=== PATIENT | male | born 1985 | race Caucasian/White ===

== ENCOUNTER → 2017-04-05 | Outpatient (CLI) | payer OTHER ==
[2017-04-05 19:11] LABS: ALBUMIN 4.4 GM/DL (3.2-5.2); ALBUMIN/GLOBULIN RATIO 1.42 (1.00-1.93); ALKALINE PHOSPHATASE 69 U/L (45-117); ALT/SGPT 38 U/L (12-78); ANION GAP 7 MEQ/L (8-16); AST/SGOT 12 U/L (15-37); BILIRUBIN,DIRECT 0.2 MG/DL (0.0-0.2); BILIRUBIN,TOTAL 0.7 MG/DL (0.2-1.0); BLOOD UREA NITROGEN 10 MG/DL (7-18); CALCIUM LEVEL 9.4 MG/DL (8.5-10.1); CARBON DIOXIDE LEVEL 29 MEQ/L (21-32); CHLORIDE LEVEL 104 MEQ/L (98-107); CREATININE FOR GFR 0.96 MG/DL (0.70-1.30); GLOMERULAR FILTRATION RATE > 60.0 (>60); GLUCOSE, FASTING 80 MG/DL (70-105); POTASSIUM SERUM 4.2 MEQ/L (3.5-5.1); SODIUM LEVEL 140 MEQ/L (136-145); TOTAL PROTEIN 7.5 GM/DL (6.4-8.2)
[2017-04-06 11:27] LABS: CONTROL LINE HPYORI INT CTR LINE PRESENT
== END ==
LOC: M SMT 14:40
PROVIDERS: ATTEND Physician Assistant
DX: K21.9 Gastro-esophageal reflux disease without esophagitis (principal); F10.10 Alcohol abuse, uncomplicated; Z83.3 Family history of diabetes mellitus

== ENCOUNTER → 2017-06-13 | Outpatient (CLI) | payer OTHER ==
[~2017-06-13] MED LIST: E-Z-GAS II EFFERVESCENT PACKET (SODIUM BICARB./CITRIC ACID/SIMETHICONE) As Ordered ONE; E-Z-HD 98% w/w 340GM SUSP BTL As Ordered ONE; E-Z-PAQUE 96% w/w SUSP 176GM BTL As Ordered ONE
--- NOTE | 2017-06-13 17:18 | REP ---
UPPER GI, AIR CONTRAST: The procedure was performed under the direct supervision of Dr. Antoine. The images were reviewed with Dr. Antoine. 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 The intestinal gas pattern is nonspecific. Liquid barium and gas-producing granules were given in the erect position as well as liquid barium in the prone oblique position in order to perform a double contrast upper GI examination. The oral and pharyngeal stages of deglutition are unremarkable. Esophageal transport is prompt and efficient and there is no esophagitis, stricture, mucosal ring or hiatal hernia. Gastroesophageal reflux is not demonstrated on this examination. The stomach nelson are normally outlined. The rugal folds are smooth and regular. There is no gastritis, neoplasm or ulcer disease. The duodenal nelson are normally outlined. The mucosal folds are smooth and regular. There is no duodenitis, pancreatitis, peptic ulcer disease or neoplasm. The visualized portion of the proximal small bowel appears normal in course and caliber. IMPRESSION: Essentially unremarkable double contrast upper GI examination. 1 minute and 43 seconds of fluoroscopy time was utilized for this procedure. Reviewed by CHASE Zimmer 06/15/2017 04:00 PEdited and Signed by John Antoine MD 06/15/2017 07:20 P
== END ==
LOC: M RAD 08:38
PROVIDERS: ATTEND Surgery
DX: K21.9 Gastro-esophageal reflux disease without esophagitis (principal)

== ENCOUNTER 2017-12-13 07:11 | Day surgery (SDC) | payer OTHER ==
[~2017-12-13 07:11] MED LIST changes: -E-Z-GAS II EFFERVESCENT PACKET (SODIUM BICARB./CITRIC ACID/SIMETHICONE) As Ordered ONE; -E-Z-HD 98% w/w 340GM SUSP BTL As Ordered ONE; -E-Z-PAQUE 96% w/w SUSP 176GM BTL As Ordered ONE; +LIDOCAINE 2% INJ 100 MG/5 ML SDV (FOR ANES.) As Ordered; +PROPOFOL 200 MG/20 ML VIAL As Ordered
[2017-12-13] MEDS: NS 1,000 ML IV (07:42)
[2017-12-13] MEDS ORDERED: fentaNYL 100 MCG/2 ML INJECTION (J3010) As Ordered (07:56)
[2017-12-13] MEDS ORDERED: PROPOFOL 200 MG/20 ML VIAL As Ordered (08:03)
== END 2017-12-13 08:49 | disposition home or self-care (01) ==
LOC: M OPP 07:11
DX: K21.0 Gastro-esophageal reflux disease with esophagitis (principal); K29.70 Gastritis, unspecified, without bleeding; K82.9 Disease of gallbladder, unspecified; R10.9 Unspecified abdominal pain; R06.83 Snoring; Z88.2 Allergy status to sulfonamides
CPT/HCPCS: 43239

== ENCOUNTER 2018-11-16 14:21 | Emergency (ER) | payer OTHER ==
[~2018-11-16] VITALS: Ht 172.7 cm; Wt 111.4 kg
[2018-11-16] MEDS ORDERED: LEXA1TAB2 PO (14:30)
[2018-11-16] MEDS ORDERED: ESCI20TA (14:30)
--- NOTE | 2018-11-16 15:32 | REP ---
CT of the brain without IV contrast: There are no comparisons. There is no subdural or epidural hematoma. There is no other intracranial hemorrhage. There is no edema, mass effect or midline shift. Ventricles are normal size and midline. The cortical stripe is unremarkable. The visualized paranasal sinuses and mastoid air cells are clear. Impression: Negative CT study of the brain. Electronically Signed by John Mendoza MD 11/16/2018 03:23 P
--- NOTE | 2018-11-16 15:36 | REP ---
CT of the cervical spine: Axial images are acquired helical scanning and are reformatted sagittal coronal projections. There are no comparisons. The skull base, C1-C2 are unremarkable. 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 The facets are normally aligned. Prevertebral soft tissues are unremarkable. There are no posterior element fractures. Impression: There is no fracture or listhesis. Electronically Signed by John Mendoza MD 11/16/2018 03:28 P
[2018-11-16 15:54] VITALS: BP 121/64
== END 2018-11-16 15:55 | disposition home or self-care (01) ==
LOC: M ED 14:21
DX: S06.0X1A Concussion with loss of consciousness of 30 minutes or less, initial encounter (principal); W00.9XXA Unspecified fall due to ice and snow, initial encounter; Y92.89 Other specified places as the place of occurrence of the external cause; Y93.89 Activity, other specified; Y99.9 Unspecified external cause status; Z86.79 Personal history of other diseases of the circulatory system; Z79.899 Other long term (current) drug therapy; Z88.2 Allergy status to sulfonamides

== ENCOUNTER → 2019-01-08 | Outpatient (REF) | payer OTHER ==
[~2019-01-08] MED LIST changes: +ESCI20TA; +LEXA1TAB2 PO; -LIDOCAINE 2% INJ 100 MG/5 ML SDV (FOR ANES.) As Ordered; -PROPOFOL 200 MG/20 ML VIAL As Ordered
== END ==
LOC: M SMT 12:56
PROVIDERS: ATTEND Urology
DX: Z30.2 Encounter for sterilization (principal)

== ENCOUNTER → 2019-03-12 | Outpatient (REF) | payer OTHER ==
[2019-03-12 10:15] LABS: SEMEN APPEARANCE OPAQUE (OPAQUE); SEMEN VISCOSITY VISCOUS (LIQUID); SEMEN VOLUME 1.4 ml (2.0-5.0); SEMEN pH 8.5 (7.0-8.0); WBC CONCENTRATION <=1 M/ml (<=1 M/ml)
== END ==
LOC: M SMT 09:55
PROVIDERS: ATTEND Urology
DX: Z98.52 Vasectomy status (principal)

== ENCOUNTER → 2019-06-27 | Outpatient (CLI) | payer OTHER ==
[2019-06-27 18:25] LABS: BASO % 0.5 % (0.0-1.0); EOS # 0.2 10^3/uL (0.0-0.5); HEMOGLOBIN 16.5 g/dl (13.5-17.5); LYMPH # 3.4 10^3/uL (1.5-5.0); LYMPH % 41.4 % (24.0-44.0); MEAN CORPUSCULAR HEMOGLOBIN 28.7 pg (27.0-33.0); MEAN CORPUSCULAR HGB CONC 32.4 g/dl (32.0-36.5); MEAN CORPUSCULAR VOLUME 88.7 fl (80.0-96.0); MONO # 0.5 10^3/uL (0.0-0.8); MONO % 5.9 % (0.0-5.0); NEUTROPHILS % 49.8 % (36.0-66.0); PLATELET COUNT, AUTOMATED 345 10^3/uL (150-450); RED BLOOD COUNT 5.75 10^6/uL (4.30-6.10); WHITE BLOOD COUNT 8.1 10^3/uL (4.0-10.0)
[2019-06-27 18:35] LABS: ALBUMIN 3.8 GM/DL (3.2-5.2); ALT/SGPT 42 U/L (12-78); BILIRUBIN,TOTAL 0.5 MG/DL (0.2-1.0); BLOOD UREA NITROGEN 18 MG/DL (7-18); CALCIUM LEVEL 9.1 MG/DL (8.5-10.1); CARBON DIOXIDE LEVEL 32 MEQ/L (21-32); CHLORIDE LEVEL 103 MEQ/L (98-107); FREE T4 0.86 NG/DL (0.76-1.46); GLOMERULAR FILTRATION RATE > 60.0 (>60); GLUCOSE, FASTING 148 MG/DL (70-100); POTASSIUM SERUM 4.4 MEQ/L (3.5-5.1); SODIUM LEVEL 141 MEQ/L (136-145); TOTAL 25(OH) VITAMIN D 18.3 NG/ML (30.0-100.0); TOTAL PROTEIN 6.8 GM/DL (6.4-8.2)
[2019-07-01 00:11] LABS: Lyme Disease IgG/IgM Antibodie <0.91 ISR (0.00-0.90); Lyme Disease IgM Ab Quantitati <0.80 index (0.00-0.79); TESTOSTERONE FREE (DIRECT) 7.1 pg/mL (8.7-25.1)
== END ==
LOC: M SMT 12:57
PROVIDERS: ATTEND Physician Assistant
DX: R53.83 Other fatigue (principal)

== ENCOUNTER → 2019-07-09 | Outpatient (CLI) | payer OTHER ==
[2019-07-09 11:35] LABS: HEMOGLOBIN A1c 5.3 %
[2019-07-09 11:43] LABS: BLOOD UREA NITROGEN 15 MG/DL (7-18); CALCIUM LEVEL 9.3 MG/DL (8.5-10.1); CARBON DIOXIDE LEVEL 31 MEQ/L (21-32); CHLORIDE LEVEL 103 MEQ/L (98-107); GLOMERULAR FILTRATION RATE > 60.0 (>60); GLUCOSE, FASTING 91 MG/DL (70-100); POTASSIUM SERUM 4.6 MEQ/L (3.5-5.1); SODIUM LEVEL 140 MEQ/L (136-145)
[2019-07-11 00:07] LABS: PSA TOTAL 1.4 ng/mL (0.0-4.0); TESTOSTERONE FREE (DIRECT) 17.7 pg/mL (8.7-25.1)
== END ==
LOC: M SMT 08:47
PROVIDERS: ATTEND Physician Assistant
DX: R73.01 Impaired fasting glucose (principal); E29.1 Testicular hypofunction

== ENCOUNTER 2021-04-07 03:57 | Emergency (ER) | payer OTHER ==
[~2021-04-07] VITALS: Ht 172.7 cm; Wt 117.2 kg
[2021-04-07 03:57] VITALS: BP 133/78
[~2021-04-07 03:57] MED LIST changes: -ESCI20TA; +ESCI20TA16
[2021-04-07] MEDS ORDERED: BUPR150T12 PO (04:05)
--- NOTE | 2021-04-07 06:17 | REPVR ---
PROCEDURE INFORMATION: Exam: US Scrotum Exam date and time: 04/07/21 (4:31am) Age: 35 years old Clinical indication: Scrotal pain. Swollen and painful left testis. TECHNIQUE: Imaging protocol: Real-time ultrasound of the scrotum and contents with color Doppler and image documentation COMPARISON: No relevant prior studies available FINDINGS: RIGHT SIDE --- Right testis measures 4.6 x 2.5 x 3.3 cm in size. Right epididymis is normal size. Small right epididymal cyst (3 x 2 x 3 mm size). No torsion. No varicocele. Small hydrocele. LEFT SIDE --- Left testis measures 5.1 x 2.5 x 3.4 cm in size. Left epididymis is normal size. Two (2) small left epididymal cysts (3 x 3 x 2 mm size) (6 x 4 x 3 mm size). No torsion. No varicocele. Small hydrocele. IMPRESSION: No scrotal mass. No evidence of testicular torsion. Small epididymal cysts, bilaterally. Small bilateral hydroceles. Electronically signed by: Aleida Herrera On 04/07/2021 06:17:15 AM
--- NOTE | 2021-04-08 14:45 | ED PDOC ---
Post-Departure Follow-Up radiology report faxed to Linda Man MD Apr 08, 2021 14:45
== END 2021-04-07 05:36 | disposition left against medical advice (07) ==
LOC: M ED 03:57
DX: R10.9 Unspecified abdominal pain (principal); N50.3 Cyst of epididymis; I10 Essential (primary) hypertension; Z53.20 Procedure and treatment not carried out because of patient's decision for unspecified reasons; Z88.1 Allergy status to other antibiotic agents; Z88.2 Allergy status to sulfonamides

== ENCOUNTER 2024-04-24 01:59 | Emergency (ER) | payer BC, SELFPAY ==
[~2024-04-24] VITALS: Ht 172.7 cm; Wt 109.1 kg
[~2024-04-24 01:59] MED LIST changes: +BUPR150T12 PO
[2024-04-24] MEDS: LIDOCAINE 1% MDV 20ML VIAL SC ONE (02:35)
[2024-04-24] MEDS: PERCOCET 5MG/325MG TAB PO ONE (02:48)
[2024-04-24] MEDS ORDERED: DERMABOND TOPICAL SKIN ADHESIVE TOP ONE (05:10)
[2024-04-24] MEDS ORDERED: CEPH500C PO (05:47)
[2024-04-24] MEDS: CEPHALEXIN 500 MG CAP PO ONE (05:55)
[2024-04-24] MEDS: BOOSTRIX VACCINE (TETANUS/DIPHTH/ACEL. PERTUSSIS) 0.5ML SYR IM ONE (06:43)
[2024-04-24 06:50] VITALS: BP 128/88; TEMP 98.6; O2SAT 97
== END 2024-04-24 06:56 | disposition home or self-care (01) ==
LOC: M ED 01:59
DX: S61.011A Laceration without foreign body of right thumb without damage to nail, initial encounter (principal); S61.511A Laceration without foreign body of right wrist, initial encounter; W13.4XXA Fall from, out of or through window, initial encounter; F10.10 Alcohol abuse, uncomplicated; Y92.009 Unspecified place in unspecified non-institutional (private) residence as the place of occurrence of the external cause; Y93.89 Activity, other specified; Y99.9 Unspecified external cause status; Z88.2 Allergy status to sulfonamides; Z79.2 Long term (current) use of antibiotics; Z79.899 Other long term (current) drug therapy; Z23 Encounter for immunization

== ENCOUNTER 2024-07-08 06:23 | Day surgery (SDC) | payer BC ==
[~2024-07-08] VITALS: Ht 172.7 cm; Wt 115.6 kg
[~2024-07-08 06:23] MED LIST changes: +BUPR15TASR PO; +CEPH500C PO; +SILD25TA2 PO; +THERTAB52 PO
[2024-07-08] MEDS ORDERED: LR 1,000 ML IV SCH (06:45)
[2024-07-08] MEDS ORDERED: propofoL 200 MG/20 ML VIAL As Ordered ONE (07:11)
[2024-07-08] MEDS ORDERED: LIDOCAINE 2% 100MG/5ML SDV (FOR ANES.) As Ordered ONE (07:12)
[2024-07-08] MEDS ORDERED: MIDAZOLAM INJ 2MG/2ML VIAL As Ordered ONE (07:12)
[2024-07-08] MEDS ORDERED: fentaNYL 100 MCG/2 ML INJECTION As Ordered ONE (07:12)
[2024-07-08] MEDS ORDERED: propofoL 500 MG/50 ML VIAL As Ordered ONE (08:01)
[2024-07-08] MEDS ORDERED: KETOROLAC 60MG 2ML VIAL As Ordered ONE (08:09)
[2024-07-08 08:26] VITALS: BP 133/68; TEMP 97.2; O2SAT 95
[2024-07-08] MEDS ORDERED: ACETAMINOPHEN 1000MG 100ML IV BAG As Ordered ONE (09:30)
== END 2024-07-08 08:48 | disposition home or self-care (01) ==
LOC: M SDC 06:23
PROVIDERS: ATTEND Surgery
DX: D17.21 Benign lipomatous neoplasm of skin and subcutaneous tissue of right arm (principal); Z88.2 Allergy status to sulfonamides
CPT/HCPCS: 21931; 88304; J0665; J1885; J2250; J3010

== ENCOUNTER → 2024-09-02 | Outpatient (CLI) | payer BC | LOC: M RAD 10:31 | PROVIDERS: ATTEND Surgery | DX: R22.1 Localized swelling, mass and lump, neck (principal); I88.9 Nonspecific lymphadenitis, unspecified ==

== ENCOUNTER → 2024-10-30 | Outpatient (CLI) | payer BC ==
[~2024-10-30] MED LIST changes: +BUPR-597 PO; +METF500T13 PO; +TOPA1TAB PO
== END ==
LOC: M EKG 07:52
PROVIDERS: ATTEND Nurse Practitioner Psychiatric/Mental Health
DX: F43.21 Adjustment disorder with depressed mood (principal)

== ENCOUNTER → 2024-10-30 | Outpatient (CLI) | payer BC ==
[2024-10-30 10:20] LABS: BASO % 0.6 % (0.0-1.0); EOS # 0.4 10^3/uL (0.0-0.5); EOS % 5.8 % (0.0-3.0); HEMATOCRIT 46.9 % (42.0-52.0); HEMOGLOBIN 15.7 g/dl (13.5-17.5); LYMPH # 2.8 10^3/uL (1.5-5.0); LYMPH % 39.6 % (24.0-44.0); MEAN CORPUSCULAR HEMOGLOBIN 28.4 pg (27.0-33.0); MEAN CORPUSCULAR HGB CONC 33.5 g/dl (32.0-36.5); MONO # 0.5 10^3/uL (0.0-0.8); MONO % 6.9 % (2.0-8.0); NEUTROPHILS # 3.3 10^3/uL (1.5-8.5); NEUTROPHILS % 46.8 % (36.0-66.0); PLATELET COUNT, AUTOMATED 323 10^3/uL (150-450); RED BLOOD COUNT 5.52 10^6/uL (4.30-6.10); WHITE BLOOD COUNT 6.9 10^3/uL (4.0-10.0)
[2024-10-30 10:45] LABS: HEMOGLOBIN A1c 5.7 % (4.0-6.0)
[2024-10-30 10:57] LABS: FREE T4 1.32 NG/DL (0.89-1.76); TOTAL 25(OH) VITAMIN D 74.4 NG/ML (20.0-100.0); VITAMIN B12 LEVEL 673 PG/ML (211-911)
[2024-10-30 10:59] LABS: ALBUMIN 3.9 G/DL (3.2-5.2); ALKALINE PHOSPHATASE 93 U/L (40-129); ALT/SGPT 54 U/L (7.0-40); AST/SGOT 13 U/L (<34); BILIRUBIN,TOTAL 0.5 MG/DL (0.3-1.2); BLOOD UREA NITROGEN 19 MG/DL (9-23); CALCIUM LEVEL 9.3 MG/DL (8.5-10.1); CARBON DIOXIDE LEVEL 27 MMOL/L (20-31); CHLORIDE LEVEL 107 MMOL/L (98-107); CREATININE FOR GFR 0.94 MG/DL (0.70-1.30); GLOMERULAR FILTRATION RATE > 60.0 (>60); GLUCOSE, FASTING 111 MG/DL (60-100); POTASSIUM SERUM 4.6 MMOL/L (3.5-5.1); SODIUM LEVEL 144 MMOL/L (136-145); THYROID STIMULATING HORMONE 2.877 uIU/ML (0.55-4.78); TOTAL PROTEIN 6.8 G/DL (5.7-8.2)
== END ==
LOC: M PLALAB 07:05
PROVIDERS: ATTEND Nurse Practitioner Psychiatric/Mental Health
DX: F43.21 Adjustment disorder with depressed mood (principal)

== ENCOUNTER → 2024-11-07 | Day surgery (SDC) | payer BC ==
[~2024-11-07] VITALS: Ht 172.7 cm; Wt 108.9 kg
[~2024-11-07] MED LIST changes: +LR 1,000 ML IV SCH
== END | disposition home or self-care (01) ==
LOC: M SDC 10:24
PROVIDERS: ATTEND Otolaryngology
DX: R22.1 Localized swelling, mass and lump, neck (principal); Z53.9 Procedure and treatment not carried out, unspecified reason

== ENCOUNTER 2025-01-22 11:21 | Inpatient (IN) | payer BC ==
[~2025-01-22] VITALS: Ht 172.7 cm; Wt 110.0 kg
[2025-01-22] VITALS (32 sets, daily range): BP systolic 83–126; BP diastolic 51–78; TEMP 97.3–97.4; O2SAT 92–100
[2025-01-22] MEDS: PANTOPRAZOLE 40MG VIAL IV SCH (09:00)
[~2025-01-22 11:21] MED LIST changes: -BUPR-597 PO; +BUPR-766 PO; -LR 1,000 ML IV SCH
[2025-01-22] MEDS ORDERED: LR 1,000 ML IV SCH (11:50)
[2025-01-22] MEDS ORDERED: SUGAMMADEX SODIUM 500 MG/5 ML VIAL (BRIDION) As Ordered ONE (13:01)
[2025-01-22] MEDS ORDERED: LIDOCAINE 2% 100MG/5ML SDV (FOR ANES.) As Ordered ONE (13:01)
[2025-01-22] MEDS ORDERED: SUCCINYLCHOLINE 100MG/5ML SYRINGE As Ordered ONE (13:01)
[2025-01-22] MEDS ORDERED: ROCURONIUM BROMIDE 50MG/5ML VIAL As Ordered ONE (13:01)
[2025-01-22] MEDS ORDERED: ONDANSETRON 4MG 2ML VIAL As Ordered ONE (13:01)
[2025-01-22] MEDS ORDERED: propofoL 200 MG/20 ML VIAL As Ordered ONE (13:01)
[2025-01-22] MEDS ORDERED: fentaNYL 100 MCG/2 ML INJECTION As Ordered ONE (13:02)
[2025-01-22] MEDS ORDERED: MIDAZOLAM INJ 2MG/2ML VIAL As Ordered ONE (13:02)
[2025-01-22] MEDS: HEPARIN SOD (PORCINE) 5000UNITS/ML 1ML VIAL/SYRINGE SQ SCH (14:00)
[2025-01-22] MEDS ORDERED: BACITRACIN OINTMENT 30GM TUBE As Ordered ONE (14:17)
[2025-01-22] MEDS: LIDOCAINE W/EPINEPHRINE 1% 20ML VIAL As Ordered ONE (14:40)
[2025-01-22] MEDS: IPRATROPIUM 0.5MG/ALBUTEROL 2.5MG INH SOL UD 3ML NEB SCH (16:00)
[2025-01-22] MEDS ORDERED: CISATRACURIUM 2MG/ML 5ML VIAL As Ordered ONE (16:10)
[2025-01-22] MEDS ORDERED: HYDROmorphone HCL 2MG/ML 1ML VIAL As Ordered ONE (16:11)
[2025-01-22] MEDS ORDERED: diphenhydrAMINE 50MG/ML VIAL As Ordered ONE (16:12)
[2025-01-22] MEDS ORDERED: ONDANSETRON 4MG 2ML VIAL IV PRN (16:15)
[2025-01-22] MEDS ORDERED: MORPHINE 2 MG/ML 1ML VIAL IV PRN (16:15)
[2025-01-22] MEDS ORDERED: fentaNYL 100 MCG/2 ML INJECTION IV PRN (16:15)
[2025-01-22] MEDS ORDERED: oxyCODONE 5MG TAB PO PRN (16:15)
[2025-01-22] MEDS ORDERED: HYDROCORTISONE 100MG/2ML VIAL As Ordered ONE (16:33)
[2025-01-22] MEDS ORDERED: DEXTROSE 50% 50ML SYRINGE IV PRN (16:40)
[2025-01-22] MEDS ORDERED: GLUCAGON INJ 1MG VIAL SC PRN (16:40)
[2025-01-22] MEDS ORDERED: GLUCOSE 4 GM CHEW PO PRN (16:40)
[2025-01-22] MEDS ORDERED: FENTANYL DRIP LOCK BOX KEY 1 EACH XX PRN (16:40)
[2025-01-22] MEDS ORDERED: EPINEPHrine HCL INJ 1 MG in D5W 240 ML IV SCH (16:40)
[2025-01-22] MEDS ORDERED: MIDAZOLAM INJ 2MG/2ML VIAL IV PRN (16:50)
[2025-01-22] MEDS: MIDAZOLAM INJ 2MG/2ML VIAL IV STA (16:50)
[2025-01-22 16:56] LABS: BASO % 0.2 % (0.0-1.0); EOS # 0.2 10^3/uL (0.0-0.5); EOS % 0.7 % (0.0-3.0); HEMATOCRIT 43.8 % (42.0-52.0); HEMOGLOBIN 14.7 g/dl (13.5-17.5); LYMPH # 6.4 10^3/uL (1.5-5.0); LYMPH % 29.3 % (24.0-44.0); MEAN CORPUSCULAR HEMOGLOBIN 29.9 pg (27.0-33.0); MEAN CORPUSCULAR HGB CONC 33.6 g/dl (32.0-36.5); MEAN CORPUSCULAR VOLUME 89.2 fl (80.0-96.0); MONO # 0.3 10^3/uL (0.0-0.8); MONO % 1.1 % (2.0-8.0); NEUTROPHILS # 14.7 10^3/uL (1.5-8.5); NEUTROPHILS % 67.3 % (36.0-66.0); PLATELET COUNT, AUTOMATED 343 10^3/uL (150-450); RED BLOOD COUNT 4.91 10^6/uL (4.30-6.10); WHITE BLOOD COUNT 21.8 10^3/uL (4.0-10.0)
[2025-01-22] MEDS: MIDAZOLAM 100MG/100ML-0.9%NACL 100 MG in IV 1 EA IV SCH (17:13)
[2025-01-22] MEDS: fentaNYL CITRATE/NaCl 1,000 MCG in IV 1 EA IV SCH (17:13)
[2025-01-22] MEDS ORDERED: METF-838 PO (17:22)
[2025-01-22] MEDS ORDERED: BUPR450T4 PO (17:22)
[2025-01-22] MEDS ORDERED: HOME MED LIST COMPLETE! XX SCH (17:25)
[2025-01-22 17:36] LABS: ALBUMIN 2.7 G/DL (3.2-5.2); BILIRUBIN,TOTAL 0.4 MG/DL (0.3-1.2); CALCIUM LEVEL 7.8 MG/DL (8.5-10.1); CREATININE FOR GFR 1.29 MG/DL (0.70-1.30); GLOMERULAR FILTRATION RATE 72.3 (>60); POTASSIUM SERUM 3.3 MMOL/L (3.5-5.1); TOTAL PROTEIN 4.4 G/DL (5.7-8.2)
[2025-01-22 17:48] LABS: ABG BASE EXCESS -5.7 (-2.0-2.0); ABG HCO3 22.9 MMOL/L (22.0-26.0); ABG O2 SATURATION 94.5 % (95.0-99.0); ABG PARTIAL PRESSURE CO2 57.1 mmHg (35.0-45.0); ABG PARTIAL PRESSURE O2 87.1 mmHg (75.0-100.0); ABG STANDARD HCO3 19.8 MMOL/L. (22.0-26.0); ABG TOTAL CO2 24.7 MMOL/L (22.0-29.0)
[2025-01-22] MEDS: CISATRACURIUM 200 MG in NS 480 ML IV SCH (17:50)
[2025-01-22 17:51] LABS: ABG pH (ARTERIAL) 7.222 UNITS (7.350-7.450)
[2025-01-22] MEDS: INSULIN LISPRO (NovoLOG) PER UNIT SC SCH (18:00)
[2025-01-22] MEDS ORDERED: EPINEPHrine HCL INJ 4 MG in D5W 246 ML IV SCH (19:00)
[2025-01-22 19:40] LABS: ABG BASE EXCESS -2.9 (-2.0-2.0); ABG HCO3 23.9 MMOL/L (22.0-26.0); ABG PARTIAL PRESSURE CO2 48.4 mmHg (35.0-45.0); ABG PARTIAL PRESSURE O2 108.6 mmHg (75.0-100.0); ABG STANDARD HCO3 22.1 MMOL/L. (22.0-26.0); ABG TOTAL CO2 25.4 MMOL/L (22.0-29.0); ABG pH (ARTERIAL) 7.311 UNITS (7.350-7.450)
[2025-01-22] MEDS: methylPREDNISolone 125MG 2ML VIAL IV SCH (23:10)
[2025-01-23] VITALS (60 sets, daily range): BP systolic 98–186; BP diastolic 55–103; TEMP 98–100.4; O2SAT 91–99
[2025-01-23 04:56] LABS: AMORPHOUS SEDIMENT MODERATE (NEGATIVE); APPEARANCE, URINE TURBID (CLEAR); BACTERIA, URINE AUTO NEGATIVE (NEGATIVE); BILIRUBIN, URINE AUTO NEGATIVE (NEGATIVE); BLOOD, URINE BLOOD 1+ (NEGATIVE); COLOR, URINE YELLOW (YELLOW); GLUCOSE, URINE (UA) AUTO NEGATIVE (NEGATIVE); KETONE, URINE AUTO NEGATIVE (NEGATIVE); LEUKOCYTE ESTERASE, URINE AUTO NEGATIVE (NEGATIVE); MUCUS, URINE SMALL (NEGATIVE); NITRITE, URINE AUTO NEGATIVE (NEGATIVE); PROTEIN, URINE AUTO NEGATIVE (NEGATIVE); RBC, URINE AUTO 0 /HPF (0-3); SPECIFIC GRAVITY URINE AUTO 1.018 (1.002-1.035); SQUAMOUS EPITHELIAL CELL UR AU 0 /HPF (0-6); UROBILINOGEN, URINE AUTO 0.2 mg/dL (0.0-2.0); WBC, URINE AUTO 3 /HPF (0-3)
[2025-01-23 05:03] LABS: HEMATOCRIT 47.3 % (42.0-52.0); HEMOGLOBIN 16.3 g/dl (13.5-17.5); MEAN CORPUSCULAR HEMOGLOBIN 29.4 pg (27.0-33.0); MEAN CORPUSCULAR HGB CONC 34.5 g/dl (32.0-36.5); MEAN CORPUSCULAR VOLUME 85.4 fl (80.0-96.0); PLATELET COUNT, AUTOMATED 354 10^3/uL (150-450); RED BLOOD COUNT 5.54 10^6/uL (4.30-6.10); WHITE BLOOD COUNT 18.3 10^3/uL (4.0-10.0)
[2025-01-23] MEDS: ACETAMINOPHEN *IV* 1,000 MG in IV 1 EA IV ONE (05:11)
[2025-01-23 05:28] LABS: CK-MB VALUE MASS 3.3 NG/ML (<3.6)
[2025-01-23 05:30] LABS: MB/CK RELATIVE INDEX 1.88 (< OR =4)
[2025-01-23 05:33] LABS: ALBUMIN 3.6 G/DL (3.2-5.2); ALKALINE PHOSPHATASE 64 U/L (40-129); ALT/SGPT 44 U/L (7.0-40); AST/SGOT 24 U/L (<34); BILIRUBIN,TOTAL 0.6 MG/DL (0.3-1.2); BLOOD UREA NITROGEN 18 MG/DL (9-23); CALCIUM LEVEL 8.5 MG/DL (8.5-10.1); CARBON DIOXIDE LEVEL 23 MMOL/L (20-31); CHLORIDE LEVEL 107 MMOL/L (98-107); CREATININE FOR GFR 1.03 MG/DL (0.70-1.30); GLOMERULAR FILTRATION RATE > 90.0 (>60); GLUCOSE, FASTING 154 MG/DL (60-100); POTASSIUM SERUM 4.7 MMOL/L (3.5-5.1); SODIUM LEVEL 142 MMOL/L (136-145); TOTAL PROTEIN 5.9 G/DL (5.7-8.2)
[2025-01-23 05:57] LABS: ABG BASE EXCESS -0.5 (-2.0-2.0); ABG HCO3 23.9 MMOL/L (22.0-26.0); ABG O2 SATURATION 98.3 % (95.0-99.0); ABG PARTIAL PRESSURE CO2 38.5 mmHg (35.0-45.0); ABG PARTIAL PRESSURE O2 121.1 mmHg (75.0-100.0); ABG STANDARD HCO3 24.1 MMOL/L. (22.0-26.0)
[2025-01-23] MEDS ORDERED: IPRATROPIUM 0.5MG/ALBUTEROL 2.5MG INH SOL UD 3ML NEB PRN (07:55)
[2025-01-23] MEDS ORDERED: PANTOPRAZOLE 40MG VIAL IV SCH (09:00)
[2025-01-23] MEDS ORDERED: ENOXAPARIN 40MG/0.4ML SYRINGE (J1650 PER 10MG) SC SCH (09:00)
[2025-01-23] MEDS: dexmedeTOMidine 200 MCG in IV 1 EA IV SCH (09:51)
[2025-01-23] MEDS: methylPREDNISolone 125MG 2ML VIAL IV SCH (11:55)
[2025-01-23] MEDS ORDERED: PRED10TA2 PO (13:46)
[2025-01-23] MEDS ORDERED: PRIL20TA2 PO (13:47)
[2025-01-23] MEDS ORDERED: GLUCOSE 4 GM CHEW PO PRN (15:10)
[2025-01-23] MEDS ORDERED: DEXTROSE 50% 50ML SYRINGE IV PRN (15:10)
[2025-01-23] MEDS ORDERED: GLUCAGON INJ 1MG VIAL SC PRN (15:10)
[2025-01-23] MEDS: INSULIN LISPRO (NovoLOG) PER UNIT SC SCH (18:59)
[2025-01-23] MEDS: methylPREDNISolone 125MG 2ML VIAL IV ONE (19:39)
[2025-01-23] MEDS ORDERED: INSULIN LISPRO (NovoLOG) PER UNIT SC SCH (21:00)
[2025-01-24] MEDS ORDERED: buPROPion **XL** TABLET 150MG (WELLBUTRIN XL) PO SCH (09:00)
== END 2025-01-23 20:07 | disposition home or self-care (01) | DRG 133 ==
LOC: M SDC 11:21 → M ICU 16:46 → M PCU 01-23 16:56
PROVIDERS: ADMIT Internal Medicine Pulmonary Disease; ATTEND General Practice
PROC: 5A1935Z Respiratory Ventilation, Less than 24 Consecutive Hours (ICD-10-PCS; principal; 2025-01-22)
PROC: 04HK33Z Insertion of Infusion Device into Right Femoral Artery, Percutaneous Approach (ICD-10-PCS; 2025-01-22)
PROC: 06HM33Z Insertion of Infusion Device into Right Femoral Vein, Percutaneous Approach (ICD-10-PCS; 2025-01-22)
DX: J96.01 Acute respiratory failure with hypoxia (principal); E11.9 Type 2 diabetes mellitus without complications; R22.1 Localized swelling, mass and lump, neck; T41.205A Adverse effect of unspecified general anesthetics, initial encounter; F41.9 Anxiety disorder, unspecified; F32.A Depression, unspecified; T78.2XXA Anaphylactic shock, unspecified, initial encounter; E66.9 Obesity, unspecified; Z88.2 Allergy status to sulfonamides